=== PATIENT | male | born 1995 ===

== ENCOUNTER → 2020-01-17 | Outpatient (CLI) | payer OTHER | END | disposition home or self-care (01) | LOC: PPH VACUNA 15:58 | DX: Z23 Encounter for immunization (principal) ==

== ENCOUNTER 2021-01-02 08:00 | Outpatient (CLI) | payer OTHER | END 2021-01-02 08:30 | disposition home or self-care (01) | LOC: PPH VACUNA 08:00 | PROVIDERS: ATTEND Emergency Medicine Pediatric Emergency Medicine | DX: Z23 Encounter for immunization (principal) ==

== ENCOUNTER 2021-02-18 17:48 | Outpatient (CLI) | payer OTHER | END 2021-02-18 23:00 | disposition home or self-care (01) | LOC: LAB 17:48 | PROVIDERS: ATTEND Obstetrics & Gynecology | DX: Z20.818 Contact with and (suspected) exposure to other bacterial communicable diseases (principal); Z20.828 Contact with and (suspected) exposure to other viral communicable diseases ==

== ENCOUNTER 2022-01-10 13:28 | Outpatient (CLI) | payer OTHER | END 2022-01-10 13:29 | disposition home or self-care (01) | LOC: PPH VACUNA 13:28 | PROVIDERS: ATTEND Emergency Medicine Pediatric Emergency Medicine | DX: Z23 Encounter for immunization (principal) ==

== ENCOUNTER → 2022-05-22 08:32 | Outpatient (CLI) | payer OTHER | END | disposition home or self-care (01) | LOC: LAB 08:32 | PROVIDERS: ATTEND Internal Medicine Gastroenterology | DX: R13.10 Dysphagia, unspecified (principal); K21.9 Gastro-esophageal reflux disease without esophagitis; R19.7 Diarrhea, unspecified ==

== ENCOUNTER 2022-06-02 08:21 | Outpatient (CLI) | payer OTHER | END 2022-06-02 08:24 | disposition home or self-care (01) | LOC: SONOGRAMA 08:21 | PROVIDERS: ATTEND Internal Medicine Gastroenterology | DX: R10.13 Epigastric pain (principal); K21.9 Gastro-esophageal reflux disease without esophagitis; R19.7 Diarrhea, unspecified ==

== ENCOUNTER 2022-07-02 08:13 | Outpatient (CLI) | payer OTHER | END 2022-07-02 08:23 | disposition home or self-care (01) | LOC: LAB 08:13 | PROVIDERS: ATTEND Internal Medicine Gastroenterology | DX: Z20.828 Contact with and (suspected) exposure to other viral communicable diseases (principal); Z11.52 Encounter for screening for COVID-19; Z20.822 Contact with and (suspected) exposure to COVID-19 ==

== ENCOUNTER 2022-07-22 07:54 | Outpatient (CLI) | payer OTHER | END 2022-07-22 08:03 | disposition home or self-care (01) | LOC: LAB 07:54 | PROVIDERS: ATTEND Internal Medicine Gastroenterology | DX: K21.9 Gastro-esophageal reflux disease without esophagitis (principal); R13.10 Dysphagia, unspecified; K76.0 Fatty (change of) liver, not elsewhere classified; R74.01 Elevation of levels of liver transaminase levels ==

== ENCOUNTER 2022-12-12 07:20 | Outpatient (CLI) | payer OTHER | END 2022-12-12 07:30 | disposition home or self-care (01) | LOC: PPH VACUNA 07:20 | PROVIDERS: ATTEND Emergency Medicine Pediatric Emergency Medicine | DX: Z23 Encounter for immunization (principal) | CPT/HCPCS: 90686; G0008 ==

== ENCOUNTER 2024-01-12 03:00 | Outpatient (CLI) | payer OTHER | END 2024-01-12 04:00 | disposition home or self-care (01) | LOC: PPH VACUNA 03:00 | PROVIDERS: ATTEND Emergency Medicine Pediatric Emergency Medicine | DX: Z23 Encounter for immunization (principal) ==

== ENCOUNTER 2025-01-19 13:00 | Outpatient (CLI) | payer OTHER | END 2025-01-19 13:10 | disposition home or self-care (01) | LOC: PPH VACUNA 13:00 | PROVIDERS: ATTEND Emergency Medicine Pediatric Emergency Medicine | DX: Z23 Encounter for immunization (principal) ==

== ENCOUNTER 2025-03-08 07:40 | Outpatient (CLI) | payer OTHER ==
[2025-03-08 08:05] LABS: BASO % 0.9 % (0.1-1.2); EOS # 0.08 (0.04-0.54); EOS % 1.4 % (0.7-7.0); LYMPH # 1.40 (1.18-3.74); LYMPH % 25.1 % (19.3-53.1); MEAN PLATELET VOLUME 9.10 fl (9.4-12.4); MONO # 0.52 (0.24-0.82); MONO % 9.3 % (4.7-12.5); NEUT # 3.51 (1.56-6.13); NEUT % 62.9 % (34.0-71.1); RED CELL DISTRIBUTION WIDTH 13.0 % (11.6-14.4)
[2025-03-08 09:08] LABS: ALT/SGPT 34.0 U/L (12-78); AST/SGOT 14.0 U/L (15-37); BILIRUBIN TOTAL 0.68 mg/dL (0.3-1.2); BUN CREA RATIO 12.0 (7.0-25.0); CHOL HDL RATIO 2.8 (0-5.0); CREATININE SERUM 1.14 mg/dL (0.70-1.30); FREE TRIODOTIRONINE 3.03 pg/ml (2.18-3.98); GFR 74.92; GLOBULINA 3.3 G/DL (2.4-3.5); GLUCOSE FASTING 95.0 mg/dL (65-100); HDL 51.0 mg/dl (40-60); LDL 84.0 mg/dl (0-130); OSMOLALITY SERUM 283.0 MOSM/KG (275-295); T4 FREE 1.2 NG/ML (0.76-1.46); TSH 0.388 uIU/mL (0.358-3.74); VLDL 7.0 (0-39)
[2025-03-09 18:32] LABS: URINE APPEARANCE Clear; URINE BILIRRUBIN Negative (NEGATIVE); URINE BLOOD NHT; URINE COLOR Yellow; URINE GLUCOSE Negative (NEGATIVE); URINE KETONE Trace (NEGATIVE); URINE LEUKOCYTE Negative; URINE NITRATE Negative; URINE PROTEIN Negative (NEGATIVE); URINE UROBILINOGEN 1.0 E.U./dl
[2025-03-09 18:35] LABS: URINE BACTERIA 4.5 uL (0.0-1933); URINE RBC 30.7 uL (0.0-20.8); URINE WBC 3.9 uL (0.0-23.2)
[2025-03-09 18:36] LABS: URINE CAST 0.00 uL (0.0-1.40); URINE EPITHELIAL CELLS 1.2 uL (0.0-38.8)
== END 2025-03-08 07:44 | disposition home or self-care (01) ==
LOC: LAB 07:40
DX: E55.9 Vitamin D deficiency, unspecified (principal); Z13.29 Encounter for screening for other suspected endocrine disorder; Z13.1 Encounter for screening for diabetes mellitus; Z13.220 Encounter for screening for lipoid disorders